=== PATIENT | female | born 1950 | race Caucasian/White ===

== ENCOUNTER → 2021-01-13 | Outpatient (CLI) | payer OTHER ==
[~2021-01-13] MED LIST: ALENDRONATE PO; B-12 PO; B12 PO; BIOTIN PO; CALCIUM 500 +1 EAC5 PO; CHONDROITIN SU1 EACH PO; CLARITIN10 M3 PO; CO-ENZYME Q-1010 MG PO; D3 PO; FOLIC ACID 40400 MCG PO; GLUCOSAMINE HC500 MG PO; LIPITOR10 MG PO; LISINOPRIL5 MG PO; LOW DOSE ASPIRI81 M1 PO; MEGARED; MULTIVITAMINS PO; NIASPAN PO; NOVOLOG100 UNIT/1 SQ; NOVOLOG100 UNIT/2 SUBQ; PROBIOTIC1 EAC7 PO; SUPER B COMPLE1 EAC2 PO; TURMERIC500 M2 PO; VITAMIN B-1100 M1 PO; VITAMIN C500 M1 PO; [UNRECOGNIZED DRUG - OTHER] PO; [UNRECOGNIZED DRUG - OTHER] PO
== END ==
LOC: LAB 05:46
PROVIDERS: ATTEND Student in an Organized Health Care Education/Training Program
DX: Z01.812 Encounter for preprocedural laboratory examination (principal); Z20.822 Contact with and (suspected) exposure to COVID-19

== ENCOUNTER → 2021-01-15 | Outpatient (CLI) | payer OTHER ==
[~2021-01-15] VITALS: Ht 154.9 cm; Wt 52.2 kg
--- NOTE | 2021-01-15 12:23 | P ---
[facility] [place] [address] PROCEDURE REPORT Name: ERIKA CARRERO Room #: REG [facility] Jabari#: [id number] Admission: 01/15/21 Attend Phys: Delfino Hannah Discharge: Date of : 46 Report #: [id number] THIS REPORT FOR: cc: Armaan Butt MD,Delfino Jules MD, MD ~ cc: Dr. Armaan Butt DATE OF SERVICE: 01/15/2021 PROCEDURE PERFORMED: Colonoscopy with biopsies. HISTORY OF PRESENT ILLNESS: The patient is a 70-year-old female for screening colonoscopy. Last colonoscopy was negative for polyps. She does have a family history of colon cancer in her mother. Last colonoscopy with random biopsies obtained showing suggestion of microscopic colitis. At that time, however, her diarrhea had improved and she was to follow up if symptoms became worse. She has been having more frequent loose stools at this time. She denies any blood in her stools. DESCRIPTION OF PROCEDURE: The risks and benefits of the procedure were explained to the patient, those risks including but not limited to bleeding, perforation and the risk of sedation. She understood these risks and gave informed consent. Sedation was given using propofol per Anesthesia. Next, a digital rectal exam was initially performed, which was normal. Next, using a standard Olympus colonoscope, the scope was placed in the patient's anus and advanced under direct vision to the cecum. The overall prep was excellent. The cecum and ileocecal valve were normal in appearance. The ascending, transverse, descending and sigmoid colon were normal. The rectal mucosa was normal. On retroflexion, no abnormalities were noted. Random biopsies were obtained today to rule out the possibility of microscopic colitis. The scope was then withdrawn and the procedure terminated. The patient tolerated the procedure well. IMPRESSION: Normal colonoscopy. RECOMMENDATIONS: 1. Await biopsy results. 2. We will discuss options including starting Questran at this time. Thank you for allowing me to participate in her care. <ELECTRONICALLY SIGNED> By: Delfino Fields MD 01/15/21 1223 [id number] Delfino Fields MD /nt
--- NOTE | 2021-01-20 12:06 | PATH ---
[facility] [address] [place] [address] PATHOLOGY RPT PROCEDURE Name: ROSEANN CARRERO Room #: REG [facility] Miranda.#: [id number] Admission: 01/15/21 Date of : 46 Discharge: Report #: [id number] Path Case #: [id number] [facility] Accession Number: [id number] . 01 Material submitted: . colon - RANDOM COLON BIOPSY R/O MICROSCOPIC COLITIS . 01 Clinical history: . COLONOSCOPY DIARRHEA . 01 Diagnosis: Colonic mucosa "random colon biopsies": - Increased intraepithelial lymphocytes and increased lamina propria, chronic inflammation. Findings consistent with microscopic colitis. - There is no evidence of atypia or malignancy. - Suggest clinical correlation. (SHA:pit; 01/17/2021) QTP 01/17/2021 1140 Local . 01 Electronically signed: . Reilly Muse MD, Pathologist NPI- [id number] . 01 Gross description: . The specimen is received in formalin, labeled "Mikhail, Roseann, random colon BX". Received are 5 segments of pale huston tissue ranging in size from 0.2-0.4 cm in maximum dimensions. The specimen is entirely submitted in cassette A1. ([facility]; 01/16/2021) NRI/NRI 01/16/2021 1811 Local . 01 Pathologist provided ICD-10: K52.9 . 01 CPT . 750512 Specimen Comment: A courtesy copy of this report has been sent to [phone], [phone] Specimen Comment: [phone] Specimen Comment: Report sent to / DR SANCHEZ Specimen Comment: A duplicate report has been generated due to demographic updates. Performed at: [facility] [address], [place] [address] MD Reilly Muse MD Phone: [phone]
== END | disposition home or self-care (01) ==
LOC: GI
PROVIDERS: ATTEND Specialist
DX: K52.9 Noninfective gastroenteritis and colitis, unspecified (principal); I10 Essential (primary) hypertension; E11.9 Type 2 diabetes mellitus without complications; E78.5 Hyperlipidemia, unspecified; Z98.890 Other specified postprocedural states; Z79.899 Other long term (current) drug therapy; Z79.4 Long term (current) use of insulin; Z96.652 Presence of left artificial knee joint; Z96.641 Presence of right artificial hip joint; Z87.891 Personal history of nicotine dependence
CPT/HCPCS: 62110; 62900